=== PATIENT | male | born 1950 | race Two or more races ===

== ENCOUNTER → 2024-06-23 | Outpatient (CLI) | payer OTHER, SELFPAY ==
--- NOTE | 2024-06-23 14:30 | XR_ITS ---
Examination: Abdomen sonogram, complete Date and time of exam: June 23, 2024 0852 hours INDICATIONS: Right upper abdominal pain left upper abdominal pain beginning 6 months ago. Technique: Multiple real-time grayscale transabdominal sonographic images of the abdomen have been obtained. Findings: Normal gallbladder Normal common bile duct 0.3 cm Pancreatic head 3.9 cm Aorta not enlarged Liver 17 cm fatty infiltration lobular contour no focal liver lesions Normal hepatopedal portal venous flow Patent IVC Right kidney 11.6 x 4.7 x 5.2 cm cortex 1.3 cm 34 mm midpole cyst Left kidney 12.2 x 6.1 x 5.4 cm renal cortex 2.1 cm Moderate bilateral renal parenchymal scar formation No hydronephrosis Spleen 8.2 cm IMPRESSION: Normal gallbladder Mild hepatomegaly suspect primary hepatocellular disease Moderate bilateral renal parenchymal scar formation
== END | disposition home or self-care (01) ==
PROVIDERS: PCP Internal Medicine; Referring Provider Internal Medicine; Visit Provider Internal Medicine
DX: R16.0 Hepatomegaly, not elsewhere classified (principal); N28.89 Other specified disorders of kidney and ureter
CPT/HCPCS: 76700

== ENCOUNTER 2024-10-18 12:50 | Emergency (ER) | payer OTHER, SELFPAY ==
[2024-10-18 12:51] VITALS: BMI 36.6
[2024-10-18 13:35] VITALS: BP 147/89; PULSE 72; RESP 18; TEMP 36.9; O2SAT 95
--- NOTE | 2024-10-18 13:35 | XR_ITS ---
Examination: Abdomen sonogram, Limited Date and time of exam: October 18, 2024 1356 hours INDICATIONS: Right upper abdominal pain and tenderness today Technique: Real-time montes scale transabdominal sonographic images of the upper abdomen obtained. Findings: Gallbladder contracted around gallstones Gallbladder wall measures 0.45 cm Common bile duct 0.3 cm Pancreatic head 3.3 cm Liver 14.5 cm no focal liver lesions, fatty infiltration Normal hepatopedal portal venous flow Patent IVC IMPRESSION: Cholelithiasis Thickened gallbladder wall 0.45 cm, consider HIDA scan or MRCP follow-up to exclude cholecystitis
--- NOTE | 2024-10-18 13:36 | PD.EDRME ---
Rapid Medical Screening Exam E Arrival date/time: 10/18/24 12:50 74-year-old male with a history of hypothyroidism, hyperlipidemia presents to the emergency room with a chief complaint of 8 out of 10 right upper quadrant abdominal pain and tenderness x 2 hours I have greeted and performed a focused initial assessment of this patient. A comprehensive ED assessment and evaluation of the patient, analysis of all test results, and completion of the medical decision making process will be conducted by additional ED providers. Chief Complaint: Abdominal Pain Time Seen by Provider: 10/18/24 13:07 Vital signs: Vital Signs Temperature 98.4 F 10/18/24 13:35 Pulse Rate 72 10/18/24 13:35 Respiratory Rate 18 10/18/24 13:35 Blood Pressure 147/89 H 10/18/24 13:35 Pulse Oximetry (%) 95 10/18/24 13:35 Oxygen Delivery Method Room Air 10/18/24 13:35 Vital signs reviewed by provider: Yes
[2024-10-18 14:04] LABS: Basophils % (Auto) 0 % (0-2.5); Eosinophils # (Auto) 0.1 Thou/mm3 (0.0-0.5); Eosinophils % (Auto) 1 % (0-10); Hematocrit 44.9 % (41.0-53.0); Hemoglobin 15.2 g/dL (13.5-16.0); Immature Granulocytes % (Auto) 0 % (0-0); Immature Granulocytes Auto 0.03 Thou/mm3 (0.00-0.00); Lymphocytes # (Auto) 2.3 Thou/mm3 (1.0-4.8); Lymphocytes % (Auto) 25 % (10-50); Mean Corpuscular HGB Conc 33.9 g/dl (31.0-37.0); Mean Corpuscular Hemoglobin 31.5 pg (25.0-35.0); Mean Corpuscular Volume 93 fL (80-100); Monocytes # (Auto) 0.9 Thou/mm3 (0.0-0.8); Monocytes % (Auto) 9 % (0-12); Neutrophils # (Auto) 6.1 Thou/mm3 (1.8-7.7); Neutrophils % (Auto) 65 % (37-80); Nucleated Red Blood Cell % 0 /100 WBC (0); Platelet Count 264 Thou/mm3 (140-440); RDW Standard Deviation 46.3 fL (35.1-43.9); Red Blood Count 4.83 Miln/mm3 (4.50-5.90); White Blood Count 9.4 Thou/mm3 (3.8-10.6)
[2024-10-18 14:14] LABS: Alanine Aminotransferase 23 U/L (10-49); Albumin, Serum 4.4 gm/dL (3.4-4.8); Albumin/Globulin Ratio 1.6 (1.2-2.2); Alkaline Phosphatase 43 U/L (46-116); Anion Gap 9 (7-16); Aspartate Amino Transferase 29 U/L (0-34); BUN/Creatinine Ratio 16 Ratio (12-20); Bilirubin,Total 0.6 mg/dL (0.3-1.2); Blood Urea Nitrogen 22 mg/dL (9-23); Calcium 9.5 mg/dL (8.3-10.6); Calcium (Corrected) 9.5 mg/dL (8.5-10.1); Carbon Dioxide 24.2 mMol/L (20.0-31.0); Chloride 105 mMol/L (98-107); Creatinine (Component) 1.4 mg/dL (0.6-1.3); Estimated Creatinine Clearance 53.6 mL/min (>60); Globulin 2.8 gm/dL (2.3-3.5); Glucose 103 mg/dL (74-106); Lipase 36 U/L (12-53); Osmolality,Calculated 278 (275-295); Potassium 4.3 mMol/L (3.4-5.1); Sodium 138 mMol/L (136-145); Total Protein 7.2 gm/dL (5.7-8.2); eGFR 53 See Note
[2024-10-18 14:55] LABS: Collection Type, Urine Clean Catch
[2024-10-18 15:04] LABS: Bilirubin,Urine Negative (Negative); Blood,Urine Negative (Negative); Clarity,Urine Clear (Clear/Hazy); Color,Urine Lt-Yellow (Lt Yel-Yel); Glucose, Urine Negative (Negative); Ketones,Urine Negative (Negative); Leukocyte Esterase,Urine Negative (Negative); Nitrite,Urine Negative (Negative); PH,Urine 5.5 (5.0-7.0); Protein,Urine Negative (Neg - Trace); RBC,Urine 1 /hpf (0-3); Specific Gravity,Urine 1.014 (1.001-1.035); Squamous Epithelial Cell,Urine 1 /hpf (0-5); Urobilinogen,Urine Negative mg/dL (0.0-1.0); WBC,Urine 1 /hpf (0-5)
--- NOTE | 2024-10-29 06:23 | PD.EDABDPN ---
ED Abdominal Pain RME/HPI General Chief Complaint: Abdominal Pain Stated complaint: ABD PAIN X 1 HR, SENT BY [facility] Time seen by provider: 10/18/24 13:07 Arrival date/time: 10/18/24 12:50 74-year-old male with a history of hypothyroidism, hyperlipidemia presents to the emergency room with a chief complaint of 8 out of 10 right upper quadrant abdominal pain and tenderness x 2 hours Source: patient Mode of arrival: ambulatory Limitations: no limitations RME / HPI RME / HPI narrative: 10/18/24 12:50 74-year-old male with a history of hypothyroidism, hyperlipidemia presents to the emergency room with a chief complaint of 8 out of 10 right upper quadrant abdominal pain and tenderness x 2 hours I have greeted and performed a focused initial assessment of this patient. A comprehensive ED assessment and evaluation of the patient, analysis of all test results, and completion of the medical decision making process will be conducted by additional ED providers. Related Data Home Medications ?Medication ?Instructions ?Recorded ?Confirmed ibuprofen 800 mg tablet 800 mg PO TID PRN Pain 07/14/19 05/29/21 pravastatin 40 mg tablet 40 mg PO HS 07/14/19 05/29/21 tamsulosin 0.4 mg capsule 0.4 mg PO HS 07/14/19 05/29/21 cholecalciferol (vitamin D3) 25 25 mcg PO QDAY 05/29/21 05/29/21 mcg (1,000 unit) tablet (Vitamin D3) fluticasone 250 mcg-salmeterol 50 1 inh inhalation BID 05/29/21 05/29/21 mcg/dose blistr powdr for inhalation (Wixela Inhub) hydrocodone 5 mg-acetaminophen 325 1 tab PO QDAY PRN Pain 05/29/21 05/29/21 mg tablet levothyroxine 200 mcg tablet 200 mcg PO QDAY 05/29/21 05/29/21 (Synthroid) multivitamin with minerals 1 tab PO QDAY 05/29/21 05/29/21 omega 6-has-pbn-fish oil 1,000 mg 1 cap PO QDAY 05/29/21 05/29/21 (120 mg-180 mg) capsule (Fish Oil) Previous Rx's ?Medication ?Instructions ?Recorded metronidazole 500 mg tablet 500 mg PO TID #21 tabs 05/29/21 hydrocodone 5 mg-acetaminophen 325 1 tab PO BID PRN pain #10 tabs 10/18/24 mg tablet Allergies Allergy/AdvReac Type Severity Reaction Status Date / Time No Known Allergies Allergy Verified 10/18/24 12:53 Review of Systems Review of Systems Systems Reviewed: All systems reviewed, normal except as documented Constitutional Constitutional: Reports system reviewed and no additional complaints, except as documented, Denies fatigue, Denies fever(s), Denies headache(s) and Denies weakness Eyes Eyes: Reports system reviewed and no additional complaints, except as documented, Denies blurry vision and Denies change in vision ENT Ears, Nose, Mouth, and Throat: Reports system reviewed and no additional complaints, except as documented, Denies otalgia, Denies headache(s), Denies nasal congestion, Denies throat swelling and Denies vertigo Cardiovascular Cardiovascular: Reports system reviewed and no additional complaints, except as documented, Denies chest pain, Denies dyspnea and Denies dyspnea on exertion Respiratory Respiratory: Reports system reviewed and no additional complaints, except as documented, Denies chest congestion, Denies cough, Denies dyspnea, Denies dyspnea on exertion and Denies wheezing Gastrointestinal Gastrointestinal: Reports system reviewed and no additional complaints, except as documented, Reports abdominal pain, Reports cramping, Reports dyspepsia, Reports nausea and Denies vomiting Genitourinary Genitourinary: Reports system reviewed and no additional complaints, except as documented, Denies dysuria and Denies hematuria Musculoskeletal Musculoskeletal: Reports system reviewed and no additional complaints, except as documented and Denies back pain Integumentary/Breasts Skin/Breast: Reports system reviewed and no additional complaints, except as documented and Denies wounds Neurologic Neurologic: Reports system reviewed and no additional complaints, except as documented, Denies confusion, Denies headache(s), Denies lack of coordination, Denies vertigo and Denies weakness Psychiatric Psychiatric: Reports system reviewed and no additional complaints, except as documented, Denies anxiety, Denies confusion, Denies depression, Denies paranoia, Denies suicidal ideation and Denies tactile hallucinations Endocrine Endocrine: Reports system reviewed and no additional complaints, except as documented and Denies fatigue Hematologic/Lymphatic Hematologic/Lymphatic: Reports system reviewed and no additional complaints, except as documented and Denies lymphadenopathy Allergic/Immunologic Allergic/Immunologic: Reports system reviewed and no additional complaints, except as documented, Denies throat swelling, Denies urticaria and Denies wheezing Past Medical History Past Medical History NEUROLOGIC: Negative Neurological Disorders or Seizures CARDIAC: Positive Hypercholesterolemia; Negative Cardiac Disorders, Myocardial Infarction, Coronary Artery Disease, Congestive Heart Failure or Hypertension RESPIRATORY: Positive Asthma and Sleep Apnea; Negative Chronic Obstructive Pulmonary Disease (COPD) or Emphysema GASTROINTESTINAL: Positive Gastrointestinal Disorders, Diverticulitis (ACUTE SIGMOID DIVERTICULITIS (05/29/21)), Diverticulosis, Hemorrhoids and Obesity GENITOURINARY: Positive Benign Prostatic Hyperplasia; Negative Genitourinary Disorders or Renal Disease MUSCULOSKELETAL: Positive Musculoskeletal Disorders and Osteomyelitis ENDOCRINE: Positive Endocrine Disorders and Hypothyroidism; Negative Diabetes Mellitus Type 1 or Diabetes Mellitus Type 2 HEMATOLOGIC: Negative Blood Disorders or Sickle Cell Disease PSYCHO/SOCIAL: Positive Depression and Anxiety OTHER HISTORY: Negative Autoimmune Disease, Blood Transfusions, Anesthesia Reactions or Cancer Family History FAMILY HISTORY: Positive Family Cardiac Disorders, Family Gastrointestinal Problems, Family Cancer and Family Surgery; Negative Family Psychiatric Problems, Family Respiratory Disorders or Family Anesthesia Reaction Social History SMOKING STATUS: Former smoker SUBSTANCE USE: does not use 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 General Limitations: Present no limitations General appearance: Present alert and in no apparent distress Head Head exam: Present atraumatic Eye Eye exam: Present normal appearance, PERRL and EOMI ENT ENT exam: Present normal exam, normal oropharynx and mucous membranes moist Neck Neck exam: Present normal inspection, full ROM and trachea midline Chest Chest inspection: Present normal inspection and symmetric chest wall rise Respiratory Respiratory exam: Present normal lung sounds bilaterally Cardiovascular Cardiovascular exam: Present regular rate, normal rhythm and normal heart sounds Abdominal Exam Abdominal exam: Present soft, tenderness, normal bowel sounds and Zimmer's sign Abdominal tenderness: Present RUQ and moderate Extremities Exam Extremities exam: Present normal inspection and full ROM Back Exam Back exam: Present normal inspection and full ROM Neurological Exam Neurological exam: Present alert, oriented X3 and CN II-XII intact Psychiatric Psychiatric exam: Present normal affect and normal mood Skin Skin exam: Present warm, dry, intact and normal color Course Quality Measures none Orders Category Date Time Status US gall bladder Stat Exams 10/18/24 13:35 Completed CBC Stat Lab 10/18/24 13:40 Completed CMP [Comprehensive Metabolic Panel] Stat Lab 10/18/24 13:40 Completed Lipase Stat Lab 10/18/24 13:40 Completed UA [Urinalysis] Stat Lab 10/18/24 14:49 Completed Urine Culture Stat Lab 10/18/24 14:49 Completed Vital Signs Vital signs: Vital Signs Temperature 98.4 F 10/18/24 13:35 Pulse Rate 72 10/18/24 13:35 Respiratory Rate 18 10/18/24 13:35 Blood Pressure 147/89 H 10/18/24 13:35 Pulse Oximetry (%) 95 10/18/24 13:35 Oxygen Delivery Method Room Air 10/18/24 13:35 O2 saturation 95% within normal limits Abdominal Pain MDM MDM Narrative MDM Narrative:: 74-year-old male with a history of hypothyroidism, hyperlipidemia presents to the emergency room with a chief complaint of 8 out of 10 right upper quadrant abdominal pain and tenderness x 2 hours Patient is hemodynamically stable and in no apparent distress. He is not tachycardic not tachypneic afebrile and O2 saturation 95% on room air Physical examination shows clear bilateral lung sounds there is no wheezing or any abnormal breath sounds. Abdominal examination shows tenderness and pain that is an 8 out of 10 to the right upper quadrant. Patient states he is nauseous but has not vomited. Patient has a positive Zimmer sign. Gallbladder ultrasound was completed and found cholelithiasis and a thickened gallbladder wall. Radiologist recommends an MRCP to exclude cholecystitis. The patient has no white count, bilirubin is normal and liver enzymes are normal. During reevaluation patient states his pain has significantly decreased. Patient was discharged and educated to follow-up with primary care provider in the next 24 to 48 hours and return to the emergency room for any evidence of worsening signs or symptoms Patient data External records reviewed:: [facility] previous records Clinical information provided by:: patient Social determinants that could affect healthcare access:: none Patient has the following chronic illnesses:: Hypothyroidism and hyperlipidemia How is presenting disease/condition affected by chronic disease/condition?: exacerbated by Evaluation data The following diagnostics were reviewed and interpreted by me:: lab results Lab and/or radiology exams considered but not ordered:: Labs and radiology exams considered and ordered Interpretation Summary: Ultrasound gallbladder-Findings: Gallbladder contracted around gallstones Gallbladder wall measures 0.45 cm Common bile duct 0.3 cm Pancreatic head 3.3 cm Liver 14.5 cm no focal liver lesions, fatty infiltration Normal hepatopedal portal venous flow Patent IVC IMPRESSION: Cholelithiasis Thickened gallbladder wall 0.45 cm, consider HIDA scan or MRCP follow-up to exclude cholecystitis Medications / Prescriptions Medications or Prescriptions considered but not ordered:: Medication given Medication administrations:: Medication given Consultations Consultation(s) initiated? (list below): No Diagnosis Differential diagnosis abdominal pain: abdominal pain, gastroenteritis, small bowel obstruction and other (Cholelithiasis/cholecystitis) Most likely diagnosis given after review of the tests above:: Cholelithiasis Admission Indicated Admission indicated?: not indicated Admission Request Was there a request for admission?: No Disposition Plan Disposition Plan: Discharge Discharge Attestation Discharge Attestation: The patient and all family members were given an opportunity to ask questions and understood the discharge instructions. Discharge instructions specifically effects, indications for sooner follow up or return to the emergency department, and the expected course of current diagnosis. Patient condition: Stable Discharge Plan Plan Patient Disposition: HOME (Self Care) Disposition Comment: Stable Prescriptions/Referrals Prescriptions/Med Rec: New hydrocodone-acetaminophen 5-325 mg tablet 1 tab PO BID MDD 10mg PRN (Reason: pain) Qty: 10 0RF No Action fluticasone propion-salmeterol [Wixela Inhub] 250-50 mcg/dose Blister With Device 1 inh INHALATION BID hydrocodone-acetaminophen [[place]] 5-325 mg Tablet 1 tab PO QDAY PRN (Reason: Pain) levothyroxine [Synthroid] 200 mcg Tablet 200 mcg PO QDAY cholecalciferol (vitamin D3) [Vitamin D3] 25 mcg (1,000 unit) Tablet 25 mcg PO QDAY omega 2-dhu-bpm-fish oil [Fish Oil] 1,000 mg (120 mg-180 mg) Capsule 1 cap PO QDAY multivitamin with minerals Tablet 1 tab PO QDAY metronidazole 500 mg tablet 500 mg PO TID Qty: 21 0RF pravastatin 40 mg Tablet 40 mg PO HS ibuprofen 800 mg Tablet 800 mg PO TID PRN (Reason: Pain) tamsulosin 0.4 mg Capsule 0.4 mg PO HS Referrals: No Primary/Family,Physician [Primary Care Provider] - In 1 week Problem List Clinical Impression: Cholelithiasis, Gallstones Patient/Caregiver Discharge Instructions Education Materials: ED Gallstones with Biliary Colic Additional Instructions: Please follow-up with your primary care provider in the next 24 to 48 hours. Your ultrasound of your gallbladder showed gallstones. Please follow-up with your primary care provider for further management for referral to a general surgeon to remove your gallbladder in an outpatient setting. At this time there is no infection or any need to remove your gallbladder in the emergency room. For any evidence of worsening signs or symptoms return to the emergency room immediately Print Language: Slovak Stand Alone Forms: Kamila Award Info., Patient Portal Info Letter PA/LAND TITLE EXAMINER Supervising Physician PA/LAND TITLE EXAMINER Supervising Physician: Dr. Eisenberg
== END 2024-10-18 17:17 | disposition home or self-care (01) ==
PROVIDERS: Nurse Practitioner Family; Emergency Provider Emergency Medicine
DX: K80.20 Calculus of gallbladder without cholecystitis without obstruction (principal)
CPT/HCPCS: 36415; 76705; 80053; 81001; 83690; 85025; 87086; 99284

== ENCOUNTER 2024-12-20 17:42 | Emergency (ER) | payer OTHER, SELFPAY ==
[2024-12-20 18:16] VITALS: BP 137/89; PULSE 120; RESP 18; TEMP 37.1; O2SAT 96
--- NOTE | 2024-12-20 18:32 | PD.EDMALE ---
ED Male Genitalurinary RME/HPI General Chief complaint: Weakness Stated complaint: WEAK, BLOOD IN URINE, POLLAKIURIA Time Seen by Provider: 12/20/24 18:12 Arrival date/time: 12/20/24 17:42 Limitations: no limitations RME / HPI RME / HPI Narrative: 74-year-old male presents to the ED with a 3-day complaint of dysuria, frequency, hematuria and feeling of weakness and fatigue. He felt feverish and chilled yesterday but none today. Denies any nausea or vomiting, diarrhea or constipation. He also had some low back pain yesterday. Denies history of diabetes or kidney issues. Related Data Home Medications ?Medication ?Instructions ?Recorded ?Confirmed ibuprofen 800 mg tablet 800 mg PO TID PRN Pain 07/14/19 05/29/21 pravastatin 40 mg tablet 40 mg PO HS 07/14/19 05/29/21 tamsulosin 0.4 mg capsule 0.4 mg PO HS 07/14/19 05/29/21 cholecalciferol (vitamin D3) 25 25 mcg PO QDAY 05/29/21 05/29/21 mcg (1,000 unit) tablet (Vitamin D3) fluticasone 250 mcg-salmeterol 50 1 inh inhalation BID 05/29/21 05/29/21 mcg/dose blistr powdr for inhalation (Wixela Inhub) hydrocodone 5 mg-acetaminophen 325 1 tab PO QDAY PRN Pain 05/29/21 05/29/21 mg tablet levothyroxine 200 mcg tablet 200 mcg PO QDAY 05/29/21 05/29/21 (Synthroid) multivitamin with minerals 1 tab PO QDAY 05/29/21 05/29/21 omega 3-jwx-xrh-fish oil 1,000 mg 1 cap PO QDAY 05/29/21 05/29/21 (120 mg-180 mg) capsule (Fish Oil) Previous Rx's ?Medication ?Instructions ?Recorded metronidazole 500 mg tablet 500 mg PO TID #21 tabs 05/29/21 hydrocodone 5 mg-acetaminophen 325 1 tab PO BID PRN pain #10 tabs /24/25 mg tablet Allergies Allergy/AdvReac Type Severity Reaction Status Date / Time No Known Allergies Allergy Verified 12/20/24 17:47 Review of Systems Review of Systems Systems Reviewed: All systems reviewed, normal except as documented Past Medical History Past Medical History NEUROLOGIC: Negative Neurological Disorders or Seizures CARDIAC: Positive Hypercholesterolemia; Negative Cardiac Disorders, Myocardial Infarction, Coronary Artery Disease, Congestive Heart Failure or Hypertension RESPIRATORY: Positive Asthma and Sleep Apnea; Negative Chronic Obstructive Pulmonary Disease (COPD) or Emphysema GASTROINTESTINAL: Positive Gastrointestinal Disorders, Diverticulitis (ACUTE SIGMOID DIVERTICULITIS (05/29/21)), Diverticulosis, Hemorrhoids and Obesity GENITOURINARY: Positive Benign Prostatic Hyperplasia; Negative Genitourinary Disorders or Renal Disease MUSCULOSKELETAL: Positive Musculoskeletal Disorders and Osteomyelitis ENDOCRINE: Positive Endocrine Disorders and Hypothyroidism; Negative Diabetes Mellitus Type 1 or Diabetes Mellitus Type 2 HEMATOLOGIC: Negative Blood Disorders or Sickle Cell Disease PSYCHO/SOCIAL: Positive Depression and Anxiety OTHER HISTORY: Negative Autoimmune Disease, Blood Transfusions, Anesthesia Reactions or Cancer Family History FAMILY HISTORY: Positive Family Cardiac Disorders, Family Gastrointestinal Problems, Family Cancer and Family Surgery; Negative Family Psychiatric Problems, Family Respiratory Disorders or Family Anesthesia Reaction Social History SMOKING STATUS: Never smoker SUBSTANCE USE: does not use 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 Lungs are clear, RRR without murmurs. Abdomen is soft and non-tender. No CVAT. General Limitations: Present no limitations General appearance: Present alert and in no apparent distress Course Course Course Narrative: 74-year-old male presents to the ED with a 3-day complaint of dysuria, frequency, hematuria and feeling of weakness and fatigue. He felt feverish and chilled yesterday but none today. Denies any nausea or vomiting, diarrhea or constipation. He also had some low back pain yesterday. Denies history of diabetes or kidney issues. Alert and oriented 74 year old male, non-toxic appearing, no acute distress. Lungs are clear, RRR without murmurs. Abdomen is soft and non-tender. No CVAT. Vital signs reveal a pulse of 120 which is concernoing for possible Sepsis, however there is no increase in his Temperature. Bloodwork and Urinalysis ordered for evaluation of possible Pyelonephritis/Sepsis. Labs reveal an elevated white count of 15.0, elevated ANC 12.3. CMP reveals a minimally elevated Creatinine of 1.4 and decreased eGFR 53. Glucose elevated at 162. Lactic is normal at 1.1. CRP elevated at >10.0. Procalc normal at 0.32. Urinalysis reveals Turbid Urine with 1+ protein, 2+ blood, +Nitrites and Leukocyte Esterase, with 378 RBC's, 572 WBC's, and 1+ Bacteria. Blood cultures and Lactic Acid were ordered as well as IV Fluids and Rocephin 2gm IV. Patient was waiting in [facility] for an open room to receive treatment, however patient eloped from the [facility], not receiving any treatment for his UTI. Quality Measures none Orders Category Date Time Status IV [Insert IV] NOW Care 12/20/24 20:03 Active Blood Culture (Lab) Stat Lab 12/20/24 20:20 Received CBC Stat Lab 12/20/24 18:53 Completed CMP [Comprehensive Metabolic Panel] Stat Lab 12/20/24 18:53 Completed CRP [C-Reactive Protein] Stat Lab 12/20/24 20:26 Completed Lactic Acid [Lactate (Lactic Acid)] Stat Lab 12/20/24 20:26 Completed Procalcitonin Stat Lab 12/20/24 20:26 Completed Urinalysis Stat Lab 12/20/24 19:14 Completed Urine Culture Stat Lab 12/20/24 19:14 Received Sodium Chloride 0.9% 1000 ml [Ns] 1,000 ml Med 12/20/24 20:03 Discontinued IV 999 mls/hr cefTRIAXone/D5w 1gm IV premix [Rocephin/D5w 1gm IV Med 12/20/24 20:03 Discontinued premix] 1 gm in 50 ml IV X1 Vital Signs Vital signs: Vital Signs Temperature 98.8 F 12/20/24 18:16 Pulse Rate 120 H 12/20/24 18:16 Respiratory Rate 18 12/20/24 18:16 Blood Pressure 137/89 H 12/20/24 18:16 Pulse Oximetry (%) 96 12/20/24 18:16 Oxygen Delivery Method Room Air 12/20/24 18:16 Urogenital - Male MDM Narrative MDM Narrative:: 74-year-old male presents to the ED with a 3-day complaint of dysuria, frequency, hematuria and feeling of weakness and fatigue. He felt feverish and chilled yesterday but none today. Denies any nausea or vomiting, diarrhea or constipation. He also had some low back pain yesterday. Denies history of diabetes or kidney issues. Alert and oriented 74 year old male, non-toxic appearing, no acute distress. Lungs are clear, RRR without murmurs. Abdomen is soft and non-tender. No CVAT. Vital signs reveal a pulse of 120 which is concernoing for possible Sepsis, however there is no increase in his Temperature. Bloodwork and Urinalysis ordered for evaluation of possible Pyelonephritis/Sepsis. Labs reveal an elevated white count of 15.0, elevated ANC 12.3. CMP reveals a minimally elevated Creatinine of 1.4 and decreased eGFR 53. Glucose elevated at 162. Lactic is normal at 1.1. CRP elevated at >10.0. Procalc normal at 0.32. Urinalysis reveals Turbid Urine with 1+ protein, 2+ blood, +Nitrites and Leukocyte Esterase, with 378 RBC's, 572 WBC's, and 1+ Bacteria. Blood cultures and Lactic Acid were ordered as well as IV Fluids and Rocephin 2gm IV. Patient was waiting in [facility] for an open room to receive treatment, however patient eloped from the [facility], not receiving any treatment for his UTI. Patient data External records reviewed:: None Clinical information provided by:: patient Social determinants that could affect healthcare access:: none Patient has the following chronic illnesses:: Hypothyroidism, Hyperlipidemia, BPH How is presenting disease/condition affected by chronic disease/condition?: uneffected by Evaluation data The following diagnostics were reviewed and interpreted by me:: lab results Lab and/or radiology exams considered but not ordered:: N/A Interpretation Summary: Labs reveal an elevated white count of 15.0, elevated ANC 12.3. CMP reveals a minimally elevated Creatinine of 1.4 and decreased eGFR 53. Glucose elevated at 162. Lactic is normal at 1.1. CRP elevated at >10.0. Procalc normal at 0.32. Urinalysis reveals Turbid Urine with 1+ protein, 2+ blood, +Nitrites and Leukocyte Esterase, with 378 RBC's, 572 WBC's, and 1+ Bacteria. Medications / Prescriptions Medications or Prescriptions considered but not ordered:: N/A Medication administrations:: Medication Administration History Discontinued Medications Ceftriaxone Sodium/Dextrose (Rocephin/D5w 1gm Iv Premix) 1 gm in 50 mls @ 100 mls/hr IV X1 ONE Stop: 12/20/24 20:32 Sodium Chloride (Ns) 1,000 mls @ 999 mls/hr IV .Q1H1M ONE Stop: 12/20/24 21:03 None received prior to patient Elopement from the [facility]. Consultations Consultation(s) initiated? (list below): No Diagnosis Urogenital Male Differential Diagnosis: urinary tract infection, urethritis, epididymitis, prostatitis and acute retention of urine Most likely diagnosis given after review of the tests above:: UTI, Possible Pyelonephritis Admission Indicated Admission indicated?: indicated (Possible, however patient eloped from [facility].) Explain why admission is indicated or not indicated:: Patient eloped. Admission Request Was there a request for admission?: No Disposition Plan Disposition Plan: other (specify) (Eloped) Discharge Plan Plan Patient Disposition: Elopement Prescriptions/Referrals Prescriptions/Med Rec: No Action fluticasone propion-salmeterol [Wixela Inhub] 250-50 mcg/dose Blister With Device 1 inh INHALATION BID hydrocodone-acetaminophen [[place]] 5-325 mg Tablet 1 tab PO QDAY PRN (Reason: Pain) levothyroxine [Synthroid] 200 mcg Tablet 200 mcg PO QDAY cholecalciferol (vitamin D3) [Vitamin D3] 25 mcg (1,000 unit) Tablet 25 mcg PO QDAY omega 3-uwm-xhg-fish oil [Fish Oil] 1,000 mg (120 mg-180 mg) Capsule 1 cap PO QDAY multivitamin with minerals Tablet 1 tab PO QDAY metronidazole 500 mg tablet 500 mg PO TID Qty: 21 0RF pravastatin 40 mg Tablet 40 mg PO HS ibuprofen 800 mg Tablet 800 mg PO TID PRN (Reason: Pain) tamsulosin 0.4 mg Capsule 0.4 mg PO HS hydrocodone-acetaminophen 5-325 mg tablet 1 tab PO BID MDD 10mg PRN (Reason: pain) Qty: 10 0RF Referrals: No Primary/Family,Physician [Primary Care Provider] - In 1 week Problem List Clinical Impression: Urinary tract infection, Pyelonephritis Patient/Caregiver Discharge Instructions Education Materials: ED Bladder Infection, Male (Adult), ED Pyelonephritis, Male (Adult) Additional Instructions: Patient Elopement from [facility] prior to treatment received. 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 Ruiz
[2024-12-20 19:11] LABS: Basophils % (Auto) 0 % (0-2.5); Eosinophils % (Auto) 0 % (0-10); Hematocrit 43.3 % (41.0-53.0); Immature Granulocytes % (Auto) 1 % (0-0); Immature Granulocytes Auto 0.11 Thou/mm3 (0.00-0.00); Lymphocytes # (Auto) 1.4 Thou/mm3 (1.0-4.8); Lymphocytes % (Auto) 9 % (10-50); Mean Corpuscular HGB Conc 34.6 g/dl (31.0-37.0); Mean Corpuscular Hemoglobin 31.9 pg (25.0-35.0); Mean Corpuscular Volume 92 fL (80-100); Monocytes # (Auto) 1.2 Thou/mm3 (0.0-0.8); Monocytes % (Auto) 8 % (0-12); Neutrophils # (Auto) 12.3 Thou/mm3 (1.8-7.7); Neutrophils % (Auto) 82 % (37-80); Nucleated Red Blood Cell % 0 /100 WBC (0); Platelet Count 224 Thou/mm3 (140-440); RDW Standard Deviation 49.8 fL (35.1-43.9)
[2024-12-20 19:25] LABS: Collection Type, Urine Clean Catch; Squamous Epithelial Cell,Urine 0 /hpf (0-5)
[2024-12-20 19:34] LABS: Alanine Aminotransferase 38 U/L (10-49); Albumin, Serum 4.2 gm/dL (3.4-4.8); Albumin/Globulin Ratio 1.6 (1.2-2.2); Alkaline Phosphatase 46 U/L (46-116); Anion Gap 11 (7-16); Aspartate Amino Transferase 36 U/L (0-34); BUN/Creatinine Ratio 14 Ratio (12-20); Bilirubin,Total 1.1 mg/dL (0.3-1.2); Blood Urea Nitrogen 20 mg/dL (9-23); Calcium 9.8 mg/dL (8.3-10.6); Calcium (Corrected) 9.8 mg/dL (8.5-10.1); Carbon Dioxide 21.5 mMol/L (20.0-31.0); Chloride 104 mMol/L (98-107); Creatinine (Component) 1.4 mg/dL (0.6-1.3); Globulin 2.6 gm/dL (2.3-3.5); Glucose 162 mg/dL (74-106); Osmolality,Calculated 278 (275-295); Potassium 3.8 mMol/L (3.4-5.1); Sodium 136 mMol/L (136-145); Total Protein 6.8 gm/dL (5.7-8.2); eGFR 53 See Note
[2024-12-20 19:39] LABS: Bacteria,Urine 1+; Bilirubin,Urine Negative (Negative); Blood,Urine 2+ (Negative); Clarity,Urine Turbid (Clear/Hazy); Color,Urine Yellow (Lt Yel-Yel); Glucose, Urine Negative (Negative); Ketones,Urine Negative (Negative); Leukocyte Esterase,Urine Positive (Negative); Nitrite,Urine Positive (Negative); Protein,Urine 1+ (Neg - Trace); RBC,Urine 378 /hpf (0-3); Specific Gravity,Urine 1.023 (1.001-1.035); WBC,Urine 572 /hpf (0-5)
[2024-12-20 20:37] LABS: Lactate (Lactic Acid) 1.1 mMol/L (0.4-2.0)
[2024-12-20 21:07] LABS: C-Reactive Protein > 10.0 mg/dL (0.0-0.9); Procalcitonin 0.32 ng/ml (0.0-0.49)
--- NOTE | 2024-12-20 21:56 | PC.NURSE ---
Pt walked up to me and asked for his blood test results. 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 Pt stated it was taking to long and he was going to leave.
== END 2024-12-20 18:56 | disposition left against medical advice (07) ==
PROVIDERS: Physician Assistant; Emergency Provider Emergency Medicine
DX: N12 Tubulo-interstitial nephritis, not specified as acute or chronic (principal)
CPT/HCPCS: 36415; 80053; 81001; 83605; 84145; 85025; 86140; 87040; 87077; 87086; 87186; 99281

== ENCOUNTER 2024-12-21 09:08 | Emergency (ER) | payer MEDICARE, MEDICAID, OTHER, SELFPAY ==
[2024-12-21] VITALS (7 sets, daily range): BP systolic 116–154; BP diastolic 66–91; PULSE 68–90; RESP 18–19; TEMP 36.7; O2SAT 95–100; BMI 35.7
--- NOTE | 2024-12-21 09:30 | PD.EDRME ---
Rapid Medical Screening Exam RME Arrival date/time: 12/21/24 09:08 74-year-old male with a history of hyperlipidemia, hypertension, hypothyroidism presents to the emergency room with a chief complaint of dysuria. Patient states he was seen here yesterday but eloped. Patient states when he got his records he saw that he has a really bad UTI and needed IV antibiotics and fluids. I have greeted and performed a focused initial assessment of this patient. A comprehensive ED assessment and evaluation of the patient, analysis of all test results, and completion of the medical decision making process will be conducted by additional ED providers. Chief Complaint: Recheck/Abnormal Lab/Rx Time Seen by Provider: 12/21/24 09:21 Vital signs: Vital Signs Temperature 98.0 F 12/21/24 09:19 Pulse Rate 90 12/21/24 09:19 Respiratory Rate 18 12/21/24 09:19 Blood Pressure 142/81 H 12/21/24 09:19 Pulse Oximetry (%) 96 12/21/24 09:19 Oxygen Delivery Method Room Air 12/21/24 09:19 Vital signs reviewed by provider: Yes
[2024-12-21 09:48] LABS: Basophils % (Auto) 0 % (0-2.5); Eosinophils # (Auto) 0.1 Thou/mm3 (0.0-0.5); Eosinophils % (Auto) 0 % (0-10); Hematocrit 43.8 % (41.0-53.0); Hemoglobin 15.1 g/dL (13.5-16.0); Immature Granulocytes % (Auto) 1 % (0-0); Immature Granulocytes Auto 0.13 Thou/mm3 (0.00-0.00); Lymphocytes # (Auto) 1.6 Thou/mm3 (1.0-4.8); Lymphocytes % (Auto) 11 % (10-50); Mean Corpuscular HGB Conc 34.5 g/dl (31.0-37.0); Mean Corpuscular Hemoglobin 32.4 pg (25.0-35.0); Mean Corpuscular Volume 94 fL (80-100); Monocytes # (Auto) 1.3 Thou/mm3 (0.0-0.8); Monocytes % (Auto) 9 % (0-12); Neutrophils # (Auto) 11.2 Thou/mm3 (1.8-7.7); Neutrophils % (Auto) 78 % (37-80); Nucleated Red Blood Cell % 0 /100 WBC (0); Platelet Count 238 Thou/mm3 (140-440); RDW Standard Deviation 51.1 fL (35.1-43.9); Red Blood Count 4.66 Miln/mm3 (4.50-5.90); White Blood Count 14.3 Thou/mm3 (3.8-10.6)
[2024-12-21 10:11] LABS: Alanine Aminotransferase 40 U/L (10-49); Albumin, Serum 4.2 gm/dL (3.4-4.8); Albumin/Globulin Ratio 1.7 (1.2-2.2); Alkaline Phosphatase 46 U/L (46-116); Anion Gap 11 (7-16); Aspartate Amino Transferase 35 U/L (0-34); BUN/Creatinine Ratio 18 Ratio (12-20); Bilirubin,Total 1.1 mg/dL (0.3-1.2); Blood Urea Nitrogen 21 mg/dL (9-23); Calcium 9.2 mg/dL (8.3-10.6); Calcium (Corrected) 9.2 mg/dL (8.5-10.1); Carbon Dioxide 24.1 mMol/L (20.0-31.0); Chloride 106 mMol/L (98-107); Creatinine (Component) 1.2 mg/dL (0.6-1.3); Estimated Creatinine Clearance 59.7 mL/min (>60); Globulin 2.5 gm/dL (2.3-3.5); Glucose 110 mg/dL (74-106); Lipase 34 U/L (12-53); Osmolality,Calculated 285 (275-295); Potassium 4.2 mMol/L (3.4-5.1); Sodium 141 mMol/L (136-145); Total Protein 6.7 gm/dL (5.7-8.2); eGFR > 60 See Note
[2024-12-21 10:18] LABS: Collection Type, Urine Clean Catch
[2024-12-21 10:37] LABS: Bacteria,Urine Rare; Bilirubin,Urine Negative (Negative); Blood,Urine 2+ (Negative); Color,Urine Yellow (Lt Yel-Yel); Glucose, Urine Negative (Negative); Ketones,Urine Negative (Negative); Leukocyte Esterase,Urine Positive (Negative); Nitrite,Urine Positive (Negative); Protein,Urine 1+ (Neg - Trace); RBC,Urine 51 /hpf (0-3); Specific Gravity,Urine 1.025 (1.001-1.035); Squamous Epithelial Cell,Urine 1 /hpf (0-5); WBC,Urine 1050 /hpf (0-5)
[2024-12-21 10:41] LABS: Clarity,Urine Hazy (Clear/Hazy)
[2024-12-21] MEDS: cefTRIAXone/D5w 1gm IV premix 1 GM/50 ML BAG IV (11:10)
[2024-12-21] MEDS: SODIUM CHLORIDE 0.9% 1000 ML 1,000 ML 999 ML IV (11:12)
--- NOTE | 2024-12-21 11:17 | PD.EDMALE ---
ED Male Genitalurinary RME/HPI General Chief complaint: Recheck/Abnormal Lab/Rx Stated complaint: COMING BACK FOR UTI TRX; ELOPED LAST NIGHT Time Seen by Provider: 12/21/24 09:21 Arrival date/time: 12/21/24 09:08 RME / HPI RME / HPI Narrative: The patient is a 74-year-old male with a history of hyperlipidemia, hypertension, hypothyroidism presents to the ED with a chief complaint of dysuria, frequency and burning micturition. The patient was here yesterday evening, but had to wait a long time and went back home. However, when he saw his reports this morning, he thought he would need urgent medical attention and presented back. He admitted night sweat and occasional dizziness but denied any fever, chills, nausea or vomiting, headache, sore throat, chest pain, abdominal pain, or leg swelling. Related Data Home Medications ?Medication ?Instructions ?Recorded ?Confirmed ibuprofen 800 mg tablet 800 mg PO TID PRN Pain 07/14/19 05/29/21 pravastatin 40 mg tablet 40 mg PO HS 07/14/19 05/29/21 tamsulosin 0.4 mg capsule 0.4 mg PO HS 07/14/19 05/29/21 cholecalciferol (vitamin D3) 25 25 mcg PO QDAY 05/29/21 05/29/21 mcg (1,000 unit) tablet (Vitamin D3) fluticasone 250 mcg-salmeterol 50 1 inh inhalation BID 05/29/21 05/29/21 mcg/dose blistr powdr for inhalation (Wixela Inhub) hydrocodone 5 mg-acetaminophen 325 1 tab PO QDAY PRN Pain 05/29/21 05/29/21 mg tablet levothyroxine 200 mcg tablet 200 mcg PO QDAY 05/29/21 05/29/21 (Synthroid) multivitamin with minerals 1 tab PO QDAY 05/29/21 05/29/21 omega 7-trq-hnv-fish oil 1,000 mg 1 cap PO QDAY 05/29/21 05/29/21 (120 mg-180 mg) capsule (Fish Oil) Previous Rx's ?Medication ?Instructions ?Recorded metronidazole 500 mg tablet 500 mg PO TID #21 tabs 05/29/21 hydrocodone 5 mg-acetaminophen 325 1 tab PO BID PRN pain #10 tabs 03/24/25 mg tablet amoxicillin 875 mg-potassium 1 tab PO BID #12 tabs 12/21/24 clavulanate 125 mg tablet Allergies Allergy/AdvReac Type Severity Reaction Status Date / Time No Known Allergies Allergy Verified 12/21/24 09:12 Review of Systems Review of Systems Systems Reviewed: All systems reviewed, normal except as documented (Above) Past Medical History Past Medical History NEUROLOGIC: Negative Neurological Disorders or Seizures CARDIAC: Positive Hypercholesterolemia; Negative Cardiac Disorders, Myocardial Infarction, Coronary Artery Disease, Congestive Heart Failure or Hypertension RESPIRATORY: Positive Asthma and Sleep Apnea; Negative Chronic Obstructive Pulmonary Disease (COPD) or Emphysema GASTROINTESTINAL: Positive Gastrointestinal Disorders, Diverticulitis (ACUTE SIGMOID DIVERTICULITIS (05/29/21)), Diverticulosis, Hemorrhoids and Obesity GENITOURINARY: Positive Benign Prostatic Hyperplasia; Negative Genitourinary Disorders or Renal Disease MUSCULOSKELETAL: Positive Musculoskeletal Disorders and Osteomyelitis ENDOCRINE: Positive Endocrine Disorders and Hypothyroidism; Negative Diabetes Mellitus Type 1 or Diabetes Mellitus Type 2 HEMATOLOGIC: Negative Blood Disorders or Sickle Cell Disease PSYCHO/SOCIAL: Positive Depression and Anxiety OTHER HISTORY: Negative Autoimmune Disease, Blood Transfusions, Anesthesia Reactions or Cancer Family History FAMILY HISTORY: Positive Family Cardiac Disorders, Family Gastrointestinal Problems, Family Cancer and Family Surgery; Negative Family Psychiatric Problems, Family Respiratory Disorders or Family Anesthesia Reaction Social History SMOKING STATUS: Never smoker SUBSTANCE USE: does not use 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 Physical exam: General: Elderly, obese, cooperative gentleman, no acute distress, Alert and Oriented x 3 HEENT: Moist mucous membranes, oropharynx clear Neck: Supple, No masses, No JVD CVS: S1S2 Regular rate and rhythm, No murmurs, rubs or gallops Lungs: Clear to auscultation with no accessory use, no wheeze no rhonchi Abd: Soft, NT/ND, +BS, no organomegaly Ext: No edema, warm and well perfused Skin: No rash Psych: Appropriate mood and affect Course Quality Measures none Orders Category Date Time Status Insert IV STAT Care 12/21/24 09:29 Active CBC Stat Lab 12/21/24 09:40 Completed CMP [Comprehensive Metabolic Panel] Stat Lab 12/21/24 09:40 Completed Lipase Stat Lab 12/21/24 09:40 Completed UA [Urinalysis] Stat Lab 12/21/24 10:13 Completed Urine Culture Stat Lab 12/21/24 10:13 Received Sodium Chloride 0.9% 1000 ml [Ns] 1,000 ml Med 12/21/24 09:30 Discontinued IV 999 mls/hr Sodium Chloride 0.9% 1000 ml [Ns] 1,000 ml Med 12/21/24 12:06 Discontinued IV 999 mls/hr Sodium Chloride 0.9% 500 ml [Ns] 500 ml Med 12/21/24 12:08 Active IV 999 mls/hr cefTRIAXone/D5w 1gm IV premix [Rocephin/D5w 1gm IV Med 12/21/24 09:30 Discontinued premix] 1 gm in 50 ml IV X1 Vital Signs Vital signs: Vital Signs Temperature 98.0 F 12/21/24 09:19 Pulse Rate 90 12/21/24 09:19 Respiratory Rate 18 12/21/24 09:19 Blood Pressure 142/81 H 12/21/24 09:19 Pulse Oximetry (%) 96 12/21/24 09:19 Oxygen Delivery Method Room Air 12/21/24 09:19 Urogenital - Male MDM Narrative MDM Narrative:: The patient is a 74-year-old male with a history of hyperlipidemia, hypertension, hypothyroidism presents to the ED with a chief complaint of dysuria, frequency and burning micturition. The patient was here yesterday evening, but had to wait a long time and went back home. However, when he saw his reports this morning, he thought he would need urgent medical attention and presented back. He admitted night sweat and occasional dizziness but denied any fever, chills, nausea or vomiting, headache, sore throat, chest pain, abdominal pain, or leg swelling. Vitals revealed BP 142/81, pulse 90, temperature 98.0, saturating 96% on room air. White count 14.3, CMP fairly stable, UA revealed protein 1+, blood 2+, nitrite positive, leukocyte esterase positive, RBC 51, WBC 1050 with rare urine bacteria. Patient was given 1.5 L of bolus normal saline, ceftriaxone 1 g IV x 1. The patient was plan to discharge home on oral antibiotics. Patient data External records reviewed:: [facility] previous records Clinical information provided by:: patient Social determinants that could affect healthcare access:: none Patient has the following chronic illnesses:: See above How is presenting disease/condition affected by chronic disease/condition?: exacerbated by Evaluation data The following diagnostics were reviewed and interpreted by me:: lab results Lab and/or radiology exams considered but not ordered:: None Interpretation Summary: See above Medications / Prescriptions Medications or Prescriptions considered but not ordered:: None Medication administrations:: Medication Administration History Sodium Chloride (Ns) 500 mls @ 999 mls/hr IV .Q31M ONE Stop: 12/21/24 12:38 Discontinued Medications Ceftriaxone Sodium/Dextrose (Rocephin/D5w 1gm Iv Premix) 1 gm in 50 mls @ 100 mls/hr IV X1 ONE Stop: 12/21/24 09:59 Last Infusion: 12/21/24 11:46 Dose: Infused Documented By: Admin: 12/21/24 11:10 Dose: 100 mls/hr Documented By: CG Sodium Chloride (Ns) 1,000 mls @ 999 mls/hr IV .Q1H1M ONE Stop: 12/21/24 10:30 Last Infusion: 12/21/24 12:03 Dose: Infused Documented By: Admin: 12/21/24 11:12 Dose: 999 mls/hr Documented By: CG Sodium Chloride (Ns) 1,000 mls @ 999 mls/hr IV .Q1H1M ONE Stop: 12/21/24 13:06 See above Consultations Consultation(s) initiated? (list below): No Diagnosis Urogenital Male Differential Diagnosis: urinary tract infection, urethritis, prostatitis and inguinal hernia Most likely diagnosis given after review of the tests above:: UTI Admission Indicated Admission indicated?: not indicated Admission Request Was there a request for admission?: No Disposition Plan Disposition Plan: Discharge Discharge Attestation Discharge Attestation: The patient and all family members were given an opportunity to ask questions and understood the discharge instructions. Discharge instructions specifically effects, indications for sooner follow up or return to the emergency department, and the expected course of current diagnosis. Patient condition: Stable Discharge Plan Plan Patient Disposition: HOME (Self Care) Prescriptions/Referrals Prescriptions/Med Rec: New amoxicillin-pot clavulanate 875-125 mg tablet 1 tab PO BID Qty: 12 0RF No Action fluticasone propion-salmeterol [Wixela Inhub] 250-50 mcg/dose Blister With Device 1 inh INHALATION BID hydrocodone-acetaminophen [[place]] 5-325 mg Tablet 1 tab PO QDAY PRN (Reason: Pain) levothyroxine [Synthroid] 200 mcg Tablet 200 mcg PO QDAY cholecalciferol (vitamin D3) [Vitamin D3] 25 mcg (1,000 unit) Tablet 25 mcg PO QDAY omega 4-tli-azq-fish oil [Fish Oil] 1,000 mg (120 mg-180 mg) Capsule 1 cap PO QDAY multivitamin with minerals Tablet 1 tab PO QDAY metronidazole 500 mg tablet 500 mg PO TID Qty: 21 0RF pravastatin 40 mg Tablet 40 mg PO HS ibuprofen 800 mg Tablet 800 mg PO TID PRN (Reason: Pain) tamsulosin 0.4 mg Capsule 0.4 mg PO HS hydrocodone-acetaminophen 5-325 mg tablet 1 tab PO BID MDD 10mg PRN (Reason: pain) Qty: 10 0RF Referrals: Lewis Miller MD [Primary Care Provider] - In 1 week Problem List Clinical Impression: Urinary tract infection Patient/Caregiver Discharge Instructions Education Materials: Urinary Tract Infections in Men Additional Instructions: You have been discharged on following recommendation by Dr. Jung: Please follow-up with your PCP within 1 week of discharge, and request for urine analysis for resolution of blood in your urine. You have been started on: -Amoxicillin-clavulanate 875/125 mg twice daily for 6 days Continue taking all other medicines as prescribed -Recommended to return back to emergency department if your symptoms persists or worsens Print Language: Vietnamese Stand Alone Forms: Kamila Award Info., Patient Portal Info Letter
[2024-12-21] MEDS: SODIUM CHLORIDE 0.9% 500 ML 500 ML 999 ML IV (12:12)
== END 2024-12-21 13:17 | disposition home or self-care (01) ==
PROVIDERS: Nurse Practitioner Family; Emergency Provider Emergency Medicine; PCP Family Medicine
DX: N39.0 Urinary tract infection, site not specified (principal); E03.9 Hypothyroidism, unspecified; E78.5 Hyperlipidemia, unspecified; I10 Essential (primary) hypertension
CPT/HCPCS: 36415; 80053; 81001; 83690; 85025; 87077; 87086; 87186; 96365; 99284; J0696; J7030; J7040

== ENCOUNTER → 2025-03-18 | Outpatient (CLI) | payer MEDICARE, OTHER, MEDICAID, SELFPAY ==
--- NOTE | 2025-03-18 13:30 | XR_ITS ---
Examination: MRI lumbar spine without contrast Date and time of exam: March 18, 2025 1324 hours, comparison October 12, 2023 INDICATIONS: Lower back pain radiating to both legs beginning 20 years ago, worse the last 2 years Technique: Multiple MRI axial and sagittal sections lumbar spine. Sagittal T2-weighted images, TR 3500, TE 118 T1 weighted transverse sections, TR 688 T8.5, T2-weighted sagittal sections T1 weighted sagittal sections TR 621, TE 30 T2 axial sections, TR 4, 190, TE 84. Findings: Adequate alignment lumbar vertebral bodies No lumbar fracture. Diffuse lumbar disc desiccation. Moderate disc narrowing L5-S1. L5-S1 moderate overall spinal stenosis, axial image 2, 5 mm central lumbar disc bulge, prominent facet arthropathy and thickening of ligamentum flavum with mild bilateral L5 ganglionic compression L4-L5 moderate overall spinal stenosis, axial image 5, 6 mm central lumbar disc bulge, facet arthropathy and thickening of ligamentum flavum L3-L4 no disc protrusion L2-L3 4 mm central lumbar disc bulge L1-L2 no disc protrusion IMPRESSION: L5-S1, L4-L5 moderate overall spinal stenosis as above, including mild bilateral L5 ganglionic compression
== END | disposition home or self-care (01) ==
PROVIDERS: PCP Family Medicine; Referring Provider Family Medicine; Visit Provider Family Medicine
DX: M48.07 Spinal stenosis, lumbosacral region (principal); M48.061 Spinal stenosis, lumbar region without neurogenic claudication; G95.20 Unspecified cord compression
CPT/HCPCS: 72148

== ENCOUNTER → 2025-04-18 | Outpatient (CLI) | payer OTHER, SELFPAY ==
--- NOTE | 2025-04-18 09:00 | XR_ITS ---
Examination: Right knee 4 views TECHNIQUE: Standing AP lateral oblique axial right knee 4 views Date and time: April 18, 2025 0914 hours, comparison March 23, 2024. INDICATIONS: Right knee pain beginning 1974 days worse the last year. FINDINGS: Severe narrowing, [id number], medial joint space Significant osteoarthritis lateral patellofemoral joints No patellar dislocation No fracture IMPRESSION: Advanced tricompartment osteoarthritis, including severe narrowing, [id number], medial joint space
== END | disposition home or self-care (01) ==
PROVIDERS: Referring Provider Anesthesiology; Visit Provider Anesthesiology
DX: M17.11 Unilateral primary osteoarthritis, right knee (principal); M25.861 Other specified joint disorders, right knee
CPT/HCPCS: 73564

== ENCOUNTER 2025-04-28 08:32 | Emergency (ER) | payer OTHER, SELFPAY ==
[2025-04-28 08:44] VITALS: BP 133/67; PULSE 115; RESP 17; TEMP 36.9; O2SAT 95
--- NOTE | 2025-04-28 08:54 | EKG_ITS ---
[facility] Test Date: 2025-04-28 Pat Name: IVELISSE BENSON Department: Room: - Gender: Male Protection Manager: : 1950 Requested By: Richard Robert (KARLA) Order Number: [id number] Reading MD: Richard Robert (NU[employer] PET CT TECHNOLOGIST) Measurements Intervals Ozan Rate: 116 P: -20 [place]: 169 QRS: -54 QRSD: 162 T: 96 QT: 343 QTc: 477 Interpretive Statements SINUS TACHYCARDIA LEFT AXIS DEVIATION [QRS AXIS < -30] LEFT BUNDLE BRANCH BLOCK [120+ ms QRS DURATION, 80+ ms Q/S IN V1/V2, 85+ ms R IN I/aVL/V5/V6] Compared to ECG 05/29/2021 13:49:33 Sinus rhythm no longer present /store/S0/[id number]
--- NOTE | 2025-04-28 08:54 | XR_ITS ---
Examination: CT brain head without contrast. 2-D sagittal coronal reconstructions Date and time of exam:April 28, 2025, 0839 hours INDICATIONS: Headache and dizziness today CTDI: vol (mGy):54.4 DLP: (mGycm):1201 Technique: Multiple CT axial sections of the brain have been obtained, 5 mm slice thickness. Contrast has not been administered. 2-D sagittal, coronal reconstructions have been obtained Low dose protocols were performed. One or more of the following dose reduction techniques were used; automated exposure control, adjustment of the mA and/or KV according to patient size, use of iterative reconstruction technique. Findings: No significant ventricular enlargement. Intra-axial or extra-axial hemorrhage density is not seen. No mass effect or midline shift Basal cisterns are not remarkable. Fourth ventricle is midline. Cranial vault intact. Impression: Negative for acute hemorrhage, mass effect or midline shift Acute sphenoid sinusitis Advise clinical correlation follow-up accordingly
--- NOTE | 2025-04-28 08:55 | PD.EDRME ---
Rapid Medical Screening Exam RME Arrival date/time: 04/28/25 08:32 75-year-old male presents to the emergency department today for complaints of dizziness, generalized fatigue, dysuria and frequent urination Chief Complaint: General Adult/Misc Complain Vital signs: Vital Signs Temperature 98.5 F 04/28/25 08:44 Pulse Rate 115 H 04/28/25 08:44 Respiratory Rate 17 04/28/25 08:44 Blood Pressure 133/67 H 04/28/25 08:44 Pulse Oximetry (%) 95 04/28/25 08:44 Oxygen Delivery Method Room Air 04/28/25 08:44
[2025-04-28 09:11] LABS: Collection Type, Urine Clean Catch; Squamous Epithelial Cell,Urine 0 /hpf (0-5)
[2025-04-28 09:19] LABS: Basophils # (Auto) 0.0 Thou/mm3 (0.0-0.2); Basophils % (Auto) 0 % (0-2.5); Eosinophils # (Auto) 0.1 Thou/mm3 (0.0-0.5); Eosinophils % (Auto) 0 % (0-10); Hematocrit 46.9 % (41.0-53.0); Hemoglobin 15.8 g/dL (13.5-16.0); Immature Granulocytes Auto 0.05 Thou/mm3 (0.00-0.00); Lymphocytes # (Auto) 0.8 Thou/mm3 (1.0-4.8); Lymphocytes % (Auto) 7 % (10-50); Mean Corpuscular HGB Conc 33.7 g/dl (31.0-37.0); Mean Corpuscular Hemoglobin 31.0 pg (25.0-35.0); Mean Corpuscular Volume 92 fL (80-100); Monocytes # (Auto) 1.0 Thou/mm3 (0.0-0.8); Monocytes % (Auto) 8 % (0-12); Neutrophils # (Auto) 10.1 Thou/mm3 (1.8-7.7); Neutrophils % (Auto) 84 % (37-80); Nucleated Red Blood Cell # 0.00 Thou/mm3 (0.00-0.00); Nucleated Red Blood Cell % 0 /100 WBC (0); Platelet Count 305 Thou/mm3 (140-440); RDW Standard Deviation 43.9 fL (35.1-43.9); Red Blood Count 5.10 Miln/mm3 (4.50-5.90); White Blood Count 12.0 Thou/mm3 (3.8-10.6)
[2025-04-28 09:22] LABS: Bacteria,Urine 1+; Bilirubin,Urine Negative (Negative); Blood,Urine 2+ (Negative); Color,Urine Yellow (Lt Yel-Yel); Glucose, Urine Negative (Negative); Ketones,Urine Negative (Negative); Leukocyte Esterase,Urine Positive (Negative); Nitrite,Urine Positive (Negative); PH,Urine 5.5 (5.0-7.0); Protein,Urine 1+ (Neg - Trace); RBC,Urine 25 /hpf (0-3); Specific Gravity,Urine 1.018 (1.001-1.035); Urobilinogen,Urine Negative mg/dL (0.0-1.0); WBC,Urine 967 /hpf (0-5)
[2025-04-28 09:24] LABS: Clarity,Urine Turbid (Clear/Hazy); Culture Indicated,Urine Yes
[2025-04-28 09:26] LABS: Amphetamine/Methamp Scrn,U Negative (Negative); Barbiturate Screen,Urine Negative (Negative); Benzodiazepines Screen,Urine Negative (Negative); Benzoylecgonine Screen, Ur Negative (Negative); Fentanyl Screen,Urine Negative (Negative); Opiate Screen,Urine Negative (Negative); THC Screen,Urine Negative (Negative)
[2025-04-28 09:41] LABS: Alanine Aminotransferase 21 U/L (10-49); Albumin, Serum 4.5 gm/dL (3.4-4.8); Albumin/Globulin Ratio 1.7 (1.2-2.2); Alkaline Phosphatase 48 U/L (46-116); Anion Gap 10 (7-16); Aspartate Amino Transferase 24 U/L (0-34); BUN/Creatinine Ratio 9 Ratio (12-20); Bilirubin,Total 0.8 mg/dL (0.3-1.2); Blood Urea Nitrogen 13 mg/dL (9-23); Calcium 9.7 mg/dL (8.3-10.6); Calcium (Corrected) 9.7 mg/dL (8.5-10.1); Carbon Dioxide 24.7 mMol/L (20.0-31.0); Chloride 105 mMol/L (98-107); Creatinine (Component) 1.4 mg/dL (0.6-1.3); Globulin 2.6 gm/dL (2.3-3.5); Glucose 122 mg/dL (74-106); Osmolality,Calculated 280 (275-295); Potassium 3.8 mMol/L (3.4-5.1); Sodium 140 mMol/L (136-145); Total Protein 7.1 gm/dL (5.7-8.2); Troponin I < 0.020 ng/mL (0.0-0.045); eGFR 53 See Note
[2025-04-28 09:56] VITALS: BP 150/89; PULSE 92; RESP 16; O2SAT 96
--- NOTE | 2025-04-28 10:16 | PD.EDADULT ---
ED General RME/HPI General Chief complaint: General Adult/Misc Complain Stated complaint: LOW BP, BODYACHES, URINE PROBLEMS Arrival date/time: 04/28/25 08:32 RME / HPI RME / HPI narrative: 75-year-old male here for evaluation of dizziness, fatigue, dysuria, urinary frequency ongoing for the past few days. Mild low-grade fever yesterday. No other acute symptoms. Notes he had a urinary tract infection about a month ago. DR. MADERA MAIN ED EVALUATION 75 year old male with history of hypertension, hyperlipidemia, hypothyroidism presents to the ED for evaluation of dizziness, nausea, back pain, urinary frequency, and mild dysuria beginning 2 days ago and worsening this morning. Back pain described as aching in sensation that is worse to his mid to lower back. Reportedly this morning while feeling dizzy his blood pressure was 93/63. Denies fevers, chills, chest pain, cough, shortness of breath, abdominal pain, or vomiting. Patient mentioned he was diagnosed with a UTI about 2.5 weeks ago and treated with a course of antibiotics. Related Data Home Medications ?Medication ?Instructions ?Recorded ?Confirmed ibuprofen 800 mg tablet 800 mg PO TID PRN Pain 07/14/19 05/29/21 pravastatin 40 mg tablet 40 mg PO HS 07/14/19 05/29/21 tamsulosin 0.4 mg capsule 0.4 mg PO HS 07/14/19 05/29/21 cholecalciferol (vitamin D3) 25 25 mcg PO QDAY 05/29/21 05/29/21 mcg (1,000 unit) tablet (Vitamin D3) fluticasone 250 mcg-salmeterol 50 1 inh inhalation BID 05/29/21 05/29/21 mcg/dose blistr powdr for inhalation ([place]ixela Inhub) hydrocodone 5 mg-acetaminophen 325 1 tab PO QDAY PRN Pain 05/29/21 05/29/21 mg tablet levothyroxine 200 mcg tablet 200 mcg PO QDAY 05/29/21 05/29/21 (Synthroid) multivitamin with minerals 1 tab PO QDAY 05/29/21 05/29/21 omega 0-ggd-udn-fish oil 1,000 mg 1 cap PO QDAY 05/29/21 05/29/21 (120 mg-180 mg) capsule (Fish Oil) Previous Rx's ?Medication ?Instructions ?Recorded metronidazole 500 mg tablet 500 mg PO TID #21 tabs 05/29/21 hydrocodone 5 mg-acetaminophen 325 1 tab PO BID PRN pain #10 tabs 10/18/24 mg tablet amoxicillin 875 mg-potassium 1 tab PO BID #12 tabs 12/21/24 clavulanate 125 mg tablet sulfamethoxazole 800 1 tab PO Q12H #14 tabs 04/28/25 mg-trimethoprim 160 mg tablet (Bactrim DS) Allergies Allergy/AdvReac Type Severity Reaction Status Date / Time No Known Allergies Allergy Verified 04/28/25 08:36 Review of Systems Review of Systems Systems Reviewed: All systems reviewed, normal except as documented Past Medical History Past Medical History CARDIAC: Positive Hypercholesterolemia RESPIRATORY: Positive Asthma and Sleep Apnea GASTROINTESTINAL: Positive Gastrointestinal Disorders, Diverticulitis, Diverticulosis, Hemorrhoids and Obesity GENITOURINARY: Positive Benign Prostatic Hyperplasia MUSCULOSKELETAL: Positive Musculoskeletal Disorders and Osteomyelitis ENDOCRINE: Positive Endocrine Disorders and Hypothyroidism PSYCHO/SOCIAL: Positive Depression and Anxiety Family History FAMILY HISTORY: Positive Family Cardiac Disorders, Family Gastrointestinal Problems, Family Cancer and Family Surgery Social History SMOKING STATUS: Former smoker SUBSTANCE USE: does not use 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 Neck: Supple CV: Slight tachycardic rate and normal rhythm, no murmurs/rubs/gallops Lungs: Clear to auscultation BL, no respiratory distress. Abd: Soft, nondistended, tender to palpation of suprapubic region, no rebound or guarding noted. Extremities: No deformities, no edema noted Neuro: AAOx3, no acute neuro deficit noted. Skin: Warm, dry, intact Course Course Course Narrative: 1030h: Patient coming in for symptoms that onset yesterday with lightheadedness, malaise, urinary symptoms. Blood pressure was noted to be low this morning in the 90s systolic which could potentially be cause of his lightheadedness. Urinalysis appears consistent with UTI. Likely cause of symptoms in general. IV fluids and antibiotics ordered, will monitor and if remains vitally stable after medications, will plan on discharge home with oral antibiotics for home. 1230h: Patient remains vitally stable. Received fluids and antibiotics. Okay to discharge home with oral antibiotics. To follow-up with PCP, return precautions advised. Quality Measures none Orders Category Date Time Status EKG (ED ONLY) *Do not use* NOW Care 04/28/25 08:[address] head/brain wo con Stat Exams 04/28/25 08:54 Completed EKG (ED Only) Stat Exams 04/28/25 08:54 Draft CBC Stat Lab 04/28/25 09:11 Completed Comprehensive Metabolic Panel Stat Lab 04/28/25 09:11 Completed Drug Screen,Urine Stat Lab 04/28/25 08:58 Completed Troponin I Stat Lab 04/28/25 09:11 Completed Urinalysis, C/S if Indicated Stat Lab 04/28/25 09:00 Completed Urine Culture Stat Lab 04/28/25 09:00 Received Acetaminophen Ivpb [Ofirmev Inj] Med 04/28/25 11:05 Discontinued 1,000 mg in 100 ml IV NOW Ketorolac Inj [Toradol Inj] Med 04/28/25 11:05 Discontinued 15 mg IVP X1 ONE Sodium Chloride 0.9% 1000 ml [Ns] 1,000 ml Med 04/28/25 10:15 Discontinued IV 999 mls/hr cefTRIAXone/D5w 1gm IV premix [Rocephin/D5w 1gm IV Med 04/28/25 10:15 Discontinued premix] 1 gm in 50 ml IV X1 Vital Signs Vital signs: Vital Signs Temperature 98.5 F 04/28/25 08:44 Pulse Rate 115 H 04/28/25 08:44 Respiratory Rate 17 04/28/25 08:44 Blood Pressure 133/67 H 04/28/25 08:44 Pulse Oximetry (%) 95 04/28/25 08:44 Oxygen Delivery Method Room Air 04/28/25 08:44 Pulse ox is 95% on room air which is adequate. Discharge Plan Plan Patient Disposition: HOME (Self Care) Patient condition on transfer: Stable Prescriptions/Referrals Prescriptions/Med Rec: New sulfamethoxazole-trimethoprim [Bactrim DS] 800-160 mg tablet 1 tab PO Q12H Qty: 14 0RF No Action fluticasone propion-salmeterol [Wixela Inhub] 250-50 mcg/dose Blister With Device 1 inh INHALATION BID hydrocodone-acetaminophen [[place]] 5-325 mg Tablet 1 tab PO QDAY PRN (Reason: Pain) levothyroxine [Synthroid] 200 mcg Tablet 200 mcg PO QDAY cholecalciferol (vitamin D3) [Vitamin D3] 25 mcg (1,000 unit) Tablet 25 mcg PO QDAY omega 3-zvb-dct-fish oil [Fish Oil] 1,000 mg (120 mg-180 mg) Capsule 1 cap PO QDAY multivitamin with minerals Tablet 1 tab PO QDAY metronidazole 500 mg tablet 500 mg PO TID Qty: 21 0RF pravastatin 40 mg Tablet 40 mg PO HS ibuprofen 800 mg Tablet 800 mg PO TID PRN (Reason: Pain) tamsulosin 0.4 mg Capsule 0.4 mg PO HS amoxicillin-pot clavulanate 875-125 mg tablet 1 tab PO BID Qty: 12 0RF hydrocodone-acetaminophen 5-325 mg tablet 1 tab PO BID MDD 10mg PRN (Reason: pain) Qty: 10 0RF Referrals: Willian Miller MD [Primary Care Provider, Medical] - In 1 week Problem List Clinical Impression: Acute UTI Patient/Caregiver Discharge Instructions Education Materials: ED Bladder Infection, Male (Adult) Additional Instructions: Some general health principles that can help you are the [employer] [place] principles: Nutrition (eat a plant-based diet, avoiding meats in general, avoiding highly processed foods) Exercise (Daily exercise/walks as tolerated) Water (Drink adequate fresh water to maintain hydration, concentrating on water rather than on soda, coffee, tea, juice, etc for hydration) [place] (Spend time - 15-20 minutes or so with skin exposed 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 and late evening sun for Vitamin D health benefits) [place] (Avoid alcohol, illicit drugs, caffeinated beverages, smoking, etc) Air (Deep breathing exercises in the early mornings in fresh air) Rest (Adequate rest at night, going to bed a few hours before midnight and avoiding all screens/television/loud music in the time right before going to bed, also avoiding heavy meals just prior to going to bed) Trust in God (Spend time daily in Bible study and prayer - health benefits in contemplation of God's true character) Additional resources that can benefit: [email or web address], look under resources and seminars. Print Language: Kazakh Stand Alone Forms: Kamila Award Info., Patient Portal Info Letter MDM Narrative MDM hospital course (for use when minimal MDM required): Chloe Horton am scribing for and in the presence of Dr. [place]era. Clinical Information Provided by: patient Medical Records reviewed [facility] Meds/Rx considered, not ordered None Labs/Rad/Tests considered, not ordered None Chronic Illness/Social Conditions which may negatively complicate care or outcome(s)-explain: None or not applicable EKG Interpretation EKG #1: EKG Interpretation: EKG @ 08:55am. Sinus tachycardia, rate 116, left axis deviation, left bundle branch block. Labs Labs: interpreted by il Lab(s) Interpretation(s): Laboratory Results WBC 12.0 Thou/mm3 (3.8-10.6) H 04/28/25 09:11 RBC 5.10 Miln/mm3 (4.50-5.90) 04/28/25 09:11 Hgb 15.8 g/dL (13.5-16.0) 04/28/25 09:11 Hct 46.9 % (41.0-53.0) 04/28/25 09:11 MCV 92 fL (80-100) 04/28/25 09:11 MCH 31.0 pg (25.0-35.0) 04/28/25 09:11 MCHC 33.7 g/dl (31.0-37.0) 04/28/25 09:11 RDW Std Deviation 43.9 fL (35.1-43.9) 04/28/25 09:11 Plt Count 305 Thou/mm3 (140-440) 04/28/25 09:11 Neut % (Auto) 84 % (37-80) H 04/28/25 09:11 Lymph % (Auto) 7 % (10-50) L 04/28/25 09:11 [place] % (Auto) 8 % (0-12) 04/28/25 09:11 Eos % (Auto) 0 % (0-10) 04/28/25 09:11 Baso % (Auto) 0 % (0-2.5) 04/28/25 09:11 Neut # (Auto) 10.1 Thou/mm3 (1.8-7.7) H 04/28/25 09:11 Lymph # (Auto) 0.8 Thou/mm3 (1.0-4.8) L 04/28/25 09:11 [place] # (Auto) 1.0 Thou/mm3 (0.0-0.8) H 04/28/25 09:11 Eos # (Auto) 0.1 Thou/mm3 (0.0-0.5) 04/28/25 09:11 Baso # (Auto) 0.0 Thou/mm3 (0.0-0.2) 04/28/25 09:11 Immature Gran # (Auto) 0.05 Thou/mm3 (0.00-0.00) H 04/28/25 09:11 Absolute Nucleated RBC 0.00 Thou/mm3 (0.00-0.00) 04/28/25 09:11 Immature Gran % 0 % (0-0) 04/28/25 09:11 Nucleated RBC % 0 /100 WBC (0) 04/28/25 09:11 Sodium 140 mMol/L (136-145) 04/28/25 09:11 Potassium 3.8 mMol/L (3.4-5.1) 04/28/25 09:11 Chloride 105 mMol/L (98-107) 04/28/25 09:11 Carbon Dioxide 24.7 mMol/L (20.0-31.0) 04/28/25 09:11 Anion Gap 10 (7-16) 04/28/25 09:11 BUN 13 mg/dL (9-23) 04/28/25 09:11 Creatinine 1.4 mg/dL (0.6-1.3) H 04/28/25 09:11 Estim Creat Clear Calc Not Performed. 04/28/25 09:11 eGFR 53 See Note (60-) L 04/28/25 09:11 BUN/Creatinine Ratio 9 Ratio (12-20) L 04/28/25 09:11 Glucose 122 mg/dL (74-106) H 04/28/25 09:11 Calculated Osmolality 280 (275-295) 04/28/25 09:11 Calcium 9.7 mg/dL (8.3-10.6) 04/28/25 09:11 Corrected Calcium 9.7 mg/dL (8.5-10.1) 04/28/25 09:11 Total Bilirubin 0.8 mg/dL (0.3-1.2) 04/28/25 09:11 AST 24 U/L (0-34) 04/28/25 09:11 ALT 21 U/L (10-49) 04/28/25 09:11 Alkaline Phosphatase 48 U/L (46-116) 04/28/25 09:11 Troponin I < 0.020 ng/mL (0.0-0.045) 04/28/25 09:11 Total Protein 7.1 gm/dL (5.7-8.2) 04/28/25 09:11 Albumin 4.5 gm/dL (3.4-4.8) 04/28/25 09:11 Globulin 2.6 gm/dL (2.3-3.5) 04/28/25 09:11 Albumin/Globulin Ratio 1.7 (1.2-2.2) 04/28/25 09:11 Ur Collection Type Clean Catch 04/28/25 09:00 Urine Color Yellow (Lt Yel-Yel) 04/28/25 09:00 Urine Clarity Turbid (Clear/Hazy) A 04/28/25 09:00 Urine pH 5.5 (5.0-7.0) 04/28/25 09:00 Ur Specific [place] 1.018 (1.001-1.035) 04/28/25 09:00 Urine Protein 1+ (Neg - Trace) A 04/28/25 09:00 Urine Glucose (UA) Negative (Negative) 04/28/25 09:00 Urine Ketones Negative (Negative) 04/28/25 09:00 Urine Blood 2+ (Negative) A 04/28/25 09:00 Urine Nitrite Positive (Negative) 04/28/25 09:00 Urine Bilirubin Negative (Negative) 04/28/25 09:00 Urine Urobilinogen (Auto) Negative mg/dL (0.0-1.0) 04/28/25 09:00 Ur Leukocyte Esterase Positive (Negative) 04/28/25 09:00 Urine RBC 25 /hpf (0-3) H 04/28/25 09:00 Urine WBC 967 /hpf (0-5) H 04/28/25 09:00 Ur Squamous Epith Cells 0 /hpf (0-5) 04/28/25 09:00 Urine Bacteria 1+ (None) A 04/28/25 09:00 Ur Culture Indicated? Yes 04/28/25 09:00 Urine Opiates Screen Negative (Negative) 04/28/25 08:58 Urine Fentanyl Screen Negative (Negative) 04/28/25 08:58 Ur Barbiturates Screen Negative (Negative) 04/28/25 08:58 U Amphetamin/Meth Scrn Negative (Negative) 04/28/25 08:58 U Benzodiazepines Scrn Negative (Negative) 04/28/25 08:58 U Cocaine Metab Screen Negative (Negative) 04/28/25 08:58 U Marijuana (THC) Screen Negative (Negative) 04/28/25 08:58 Imaging Imaging Interpretation(s): CT brain shows no significant acute abnormalities Medication Administration(s) Medication Administration History Discontinued Medications Ceftriaxone Sodium/Dextrose (Rocephin/D5w 1gm Iv Premix) 1 gm in 50 mls @ 100 mls/hr IV X1 ONE Stop: 04/28/25 10:44 Last Infusion: 04/28/25 11:16 Dose: Infused Documented By: Admin: 04/28/25 10:44 Dose: 100 mls/hr Documented By: VL Sodium Chloride (Ns) 1,000 mls @ 999 mls/hr IV .Q1H1M ONE Stop: 04/28/25 11:15 Last Infusion: 04/28/25 11:45 Dose: Infused Documented By: Admin: 04/28/25 10:44 Dose: 999 mls/hr Documented By: VL Acetaminophen (Ofirmev Inj) 1,000 mg in 100 mls @ 250 mls/hr IV NOW ONE Stop: 04/28/25 11:28 Last Infusion: 04/28/25 11:40 Dose: Infused Documented By: Admin: 04/28/25 11:16 Dose: 250 mls/hr Documented By: VL Ketorolac Tromethamine (Ketorolac Inj 30 Mg/Ml Vial) 15 mg IVP X1 ONE Stop: 04/28/25 11:06 Last Admin: 04/28/25 11:16 Dose: 15 mg Documented By: VL See above Diagnosis Diagnoses ruled out and/or further discussions: Urinary tract infection
[2025-04-28] MEDS: cefTRIAXone/D5w 1gm IV premix 1 GM/50 ML BAG IV (10:44)
[2025-04-28] MEDS: SODIUM CHLORIDE 0.9% 1000 ML 1,000 ML 999 ML IV (10:44)
[2025-04-28] MEDS: KETOROLAC INJ 30 MG/ML VIAL 15 MG IVP (11:16)
[2025-04-28] MEDS: ACETAMINOPHEN IVPB 1,000 MG/100 ML VIAL 250 MG IV (11:16)
[2025-04-28 12:29] VITALS: BP 106/74; PULSE 73; RESP 20; O2SAT 93
[2025-04-28 12:59] VITALS: RESP 19; O2SAT 96
== END 2025-04-28 13:02 | disposition home or self-care (01) ==
PROVIDERS: Nurse Practitioner Primary Care; Emergency Provider Family Medicine; PCP Family Medicine
DX: N39.0 Urinary tract infection, site not specified (principal); R51.9 Headache, unspecified; I44.7 Left bundle-branch block, unspecified; R00.0 Tachycardia, unspecified; I10 Essential (primary) hypertension; E78.5 Hyperlipidemia, unspecified; E03.9 Hypothyroidism, unspecified; Z87.440 Personal history of urinary (tract) infections
CPT/HCPCS: 36415; 70450; 80053; 80307; 81001; 84484; 85025; 87077; 87086; 87186; 93005; 96365; 96375; 99284; J0131; J0696; J1885; J7030

== ENCOUNTER → 2025-05-05 | Outpatient (CLI) | payer OTHER, SELFPAY ==
--- NOTE | 2025-05-05 15:10 | XR_ITS ---
EXAMINATION: Left knee 4 views TECHNIQUE: AP oblique lateral axial left knee 4 views Date and time: May 05, 2025, 1528 hours INDICATIONS: Left knee pain years. FINDINGS: Severe narrowing medial joint space left knee Moderate osteoarthritis lateral patellofemoral joints No patellar dislocation No fracture IMPRESSION: Moderate to advanced tricompartment osteoarthritis, including severe narrowing medial joint space left knee
== END | disposition home or self-care (01) ==
LOC: CDIM 15:04
PROVIDERS: PCP Family Medicine; Referring Provider Anesthesiology; Visit Provider Anesthesiology
DX: M17.12 Unilateral primary osteoarthritis, left knee (principal); M25.862 Other specified joint disorders, left knee
CPT/HCPCS: 73564